=== PATIENT | female | born 1940 | race American Indian/Alaskan Native ===

== ENCOUNTER 2018-06-15 07:09 | Day surgery (SDC) | payer MEDICARE ==
[2018-06-15] MEDS ORDERED: ZOFRAN IV PRN (07:28)
[2018-06-15] MEDS ORDERED: DILAUDID IV PRN (07:28)
[2018-06-15] MEDS ORDERED: NACL 0.9% 1000 ML 1,000 ML IV SCH (08:00)
[2018-06-15] MEDS ORDERED: TYLENOL ONE (09:11)
--- NOTE | 2018-06-15 09:27 | Anesthesia Consultation ---
Anesthesia Consult and Med Hx Date of service: 06/15/18 - Airway Anesthetic Teeth Evaluation: Good ROM Head & Neck: Adequate Mental/Hyoid Distance: Adequate Mallampati Class: Class I Intubation Access Assessment: Good - Pulmonary Exam CTA: Yes - Cardiac Exam Cardiac Exam: RRR - Pre-Operative Health Status ASA Pre-Surgery Classification: ASA3 Proposed Anesthetic Plan: General (HTN, DM, Denies GERD, GA with LMA ok) - Pulmonary Hx Smoking: No Hx Sleep Apnea: (RADHA PRE SCREEN HIGH RISK.) - Cardiovascular System Hx Hypertension: Yes (X 20 YRS) - Central Nervous System Hx Back Pain: Yes (NECK AND BACK PAIN) - Hematic Hx Anemia: Yes
--- NOTE | 2018-06-15 09:27 | Anesthesia Day of Surgery ---
Anesthesia Day of Surgery - Day of Surgery Patient Examined: Yes Patient H&P Reviewed: Yes Patient is NPO: Yes
[2018-06-15 10:33] LABS: Hematocrit 33.5 % (30.3-42.9)
[2018-06-15] MEDS ORDERED: SUBLIMAZE ONE (11:26)
[2018-06-15] MEDS ORDERED: DIPRIVAN 10 MG/ML IV ONE (11:27)
[2018-06-15] MEDS ORDERED: ZOFRAN ONE (12:00)
[2018-06-15] MEDS ORDERED: XYLOCAINE MPF 2% ONE (12:00)
[2018-06-15] MEDS ORDERED: ANCEF/STERILE WATER 2 GM/20 ML IV NR (12:00)
[2018-06-15] MEDS ORDERED: WATER FOR IRRIG STERILE IR ONE (12:30)
[2018-06-15] MEDS ORDERED: LASIX ONE (12:48)
--- NOTE | 2018-06-15 12:53 | Post Operative Note ---
Date of procedure: 06/15/18 Pre-op diagnosis: pelvic mass hydro Post-op diagnosis: same Findings: strictures Procedure: cysto r ureteroscopy rpgs j stents biopsy Anesthesia: GETA Surgeon: DION BIRCH Estimated blood loss: minimal Pathology: list (periurethral) Specimen disposition: to lab Condition: stable Disposition: PACU
--- NOTE | 2018-06-15 12:54 | Discharge Summary ---
Short Stay Discharge Plan Activity: other (no straining ) Weight Bearing Status: Full Weight Bearing Diet: regular Wound: open to air Special Instructions: other (f/u 24 hrs to remove vag pack ) Durable Medical Equipment Needed Upon Discharge: other (stents and vag pack ) Follow up with: PRIMARY CARE, [Primary Care Provider] - 7 Days DION BIRCH MD [Staff Physician] - 06/16/18
[2018-06-15] MEDS ORDERED: ZEMURON IV ONE (13:00)
--- NOTE | 2018-06-15 13:14 | Operative Report ---
PREOPERATIVE DIAGNOSES: Pelvic cancer, pelvic mass, bilateral hydronephrosis. POSTOPERATIVE DIAGNOSES: Pelvic cancer, pelvic mass, bilateral hydronephrosis with ureteral strictures, left upper ureter, right lower ureter. PROCEDURE: Cystoscopy, bilateral stent changes, right ureteroscopy, periurethral biopsy. SURGEON: Bud Ward MD ANESTHESIA: General. FINDINGS: This is a woman with pelvic mass who came to me with bilateral stents that was within for quite a while. She did not go to follow up in our country. I do not have all her history. She now presents for stent exchange. DESCRIPTION OF PROCEDURE: The patient was brought to the operating room and placed on the operating table. Following induction of anesthesia, placed in lithotomy position, prepped and draped in usual sterile fashion. Urethra was well retracted. The vagina was very short with evidence of a mass and a fixed pelvis. We can barely torque, even an ureteroscope would not torque to get into the orifice that was the rigid ureteroscope. At this point, the right stent was brought out through the urethra and it should be noted the bladder neck was well elevated from this pelvic mass or just scar tissue. We placed a wire in the ureter and using a double lumen catheter, we placed a second wire. Low ureteroscopy revealed severe narrowing in the lower ureter very compressed. We then placed a stent on the right side. On the left side, we could not get a wire through the stent and there was evidence of upper ureteral narrowing stricture. Eventually with an open-ended we got the wire back up and did not want to do ureteroscopy to the upper ureter. It would look too fragile. We could even get a second wire in this small opening. Another 6-Welsh 26 was placed in the left side. The patient tolerated the procedure well. A small biopsy periurethral on the right side was taken. There was some bleeding, so we placed the Gelfoam and a pack which was absorbable, with a vaginal pack just to be sure there was no bleeding, just one biopsy was done. The patient tolerated the procedure well and brought to recovery in stable condition with an 18-S[place] catheter. JOB# [id number] REYES/LAVINIA
[2018-06-15 14:28] VITALS: BP 140/64
--- NOTE | 2018-06-15 15:26 | Fluoroscopy Report ---
FLUOROSCOPY RETROGRADE UROGRAPHY: HISTORY: Hydronephrosis. FINDINGS: Fluoroscopy was provided by radiology during retrograde urography by the urologist. 6 fluoroscopic images were captured. The images demonstrate bilateral ureteral stent exchange. Right ureteroscopy and bladder biopsy were performed per the operative notes. No ureteral stones were visualized. The final image demonstrates good placement of the ureteral stents and adequate drainage of both collecting systems. IMPRESSION: Bilateral ureteral stent exchange.
== END 2018-06-15 15:05 | disposition home or self-care (01) ==
LOC: OR 07:09
PROVIDERS: ATTEND Urology
DX: C76.3 Malignant neoplasm of pelvis (principal); N13.39 Other hydronephrosis; E11.9 Type 2 diabetes mellitus without complications; E78.00 Pure hypercholesterolemia, unspecified; I10 Essential (primary) hypertension; G47.33 Obstructive sleep apnea (adult) (pediatric); Z86.2 Personal history of diseases of the blood and blood-forming organs and certain disorders involving the immune mechanism; Z79.899 Other long term (current) drug therapy
CPT/HCPCS: 36415; 52204; 52332; 52351; 74420; 82962; 85014; 85018; 88305; A4217; C1758; C1769; C2617; J0690; J1940; J2405; J2704; J3010; J7030; Q9967

== ENCOUNTER 2021-05-02 11:06 | Day surgery (SDC) | payer MEDICARE ==
[2021-05-01 11:22] LABS: Hematocrit 27.9 % (30.3-42.9); Hemoglobin 9.4 gm/dl (10.1-14.3); Mean Corpuscular HGB Conc 34 % (30-34); Mean Corpuscular Volume 82 fl (79-97); Platelet Count 470 K/mm3 (140-440); Red Blood Count 3.42 M/mm3 (3.65-5.03); Red Cell Distribution Width 16.5 % (13.2-15.2)
[2021-05-01 11:40] LABS: Calcium 9.8 mg/dL (8.4-10.2)
[~2021-05-02 11:06] MED LIST: IOHEXOL 300 MG/ML 50ML IV ONE; LACTATED RINGERS 1,000 ML IV SCH; WATER FOR IRRIG STERILE 1,500 ML BOTTLE IR ONE; WATER FOR IRRIG STERILE 2000 ML IR ONE
--- NOTE | 2021-05-02 12:53 | Anesthesia Consultation ---
Anesthesia Consult and Med Hx Date of service: 05/02/21 - Airway Anesthetic Teeth Evaluation: Poor (multiple missing teeth; denies loose teeth) ROM Head & Neck: Adequate Mental/Hyoid Distance: Adequate Mallampati Class: Class II Intubation Access Assessment: Probably Good - Pre-Operative Health Status ASA Pre-Surgery Classification: ASA3 Proposed Anesthetic Plan: General - Pulmonary Hx Smoking: No Hx Respiratory Symptoms: No Hx Sleep Apnea: No (RADHA PRE SCREEN HIGH RISK.) - Cardiovascular System Hx Hypertension: Yes (took antihypertensives this morning) Hx Heart Attack/AMI: No Hx Percutaneous Transluminal Coronary Angioplasty (PTCA): No Hx Cardia Arrhythmia: No - Central Nervous System CVA: No Hx Back Pain: Yes (w/ neuropathy) - Endocrine Hx Renal Disease: Yes (CKD) Hx Liver Disease: No Hx Non-Insulin Dependent Diabetes: Yes Hx Thyroid Disease: No - Hematic Hx Anemia: Yes - Other Systems Hx Cancer: Yes (hx cervical cancer) - Additional Comments Anesthesia Medical History Comments: No hx anesthetic complications.
--- NOTE | 2021-05-02 12:53 | Anesthesia Day of Surgery ---
Anesthesia Day of Surgery - Day of Surgery Patient Examined: Yes Patient H&P Reviewed: Yes Patient is NPO: Yes
[2021-05-02] MEDS ORDERED: ACETAMINOPHEN 500 MG TAB PO SCH (13:30)
[2021-05-02] MEDS ORDERED: ONDANSETRON 4 MG/2 ML INJ IV PRN (13:30)
[2021-05-02] MEDS ORDERED: ceFAZolin/Water 2 GM/20 ML 2 GM/20 ML SYRINGE IV ONE (13:47)
[2021-05-02] MEDS ORDERED: ceFAZolin/Water 2 GM/20 ML 2 GM/20 ML SYRINGE IV NR (14:00)
[2021-05-02] MEDS ORDERED: INSULIN REGULAR, HUMAN 100 UNITS/1 ML ONE (14:10)
[2021-05-02] MEDS ORDERED: MIDAZOLAM 2 MG/2 ML INJ ONE (14:16)
[2021-05-02] MEDS ORDERED: propofoL 200 MG/20 ML VIAL IV ONE (14:16)
[2021-05-02] MEDS ORDERED: WATER FOR IRRIG STERILE 2000 ML IR ONE (14:37)
[2021-05-02] MEDS ORDERED: WATER FOR IRRIG STERILE 1,500 ML BOTTLE IR ONE (14:52)
[2021-05-02] MEDS ORDERED: IOHEXOL 300 MG/ML 50ML IV ONE (14:57)
[2021-05-02] MEDS ORDERED: ONDANSETRON 4 MG/2 ML INJ ONE (14:57)
--- NOTE | 2021-05-02 15:00 | Post Operative Note ---
Pre-op diagnosis: cervical cancer Post-op diagnosis: same Findings: necrosis pelvic mass Procedure: cysto cystogeram biop[sies Anesthesia: GETA Surgeon: DION BIRCH Estimated blood loss: minimal Pathology: list (bladder urethra vag) Specimen disposition: to lab Condition: stable Disposition: PACU
--- NOTE | 2021-05-02 15:01 | Discharge Summary ---
Short Stay Discharge Plan Activity: avoid flexion, other (no styrsining ) Weight Bearing Status: Full Weight Bearing Diet: regular Special Instructions: other (teach monreal care ) Durable Medical Equipment Needed Upon Discharge: other (monreal ) Follow up with: TREVOR RUBIO MD [Primary Care Provider] - 7 Days DION BIRCH MD [Staff Physician] - 7 Days
[2021-05-02] MEDS: fentaNYL 100 MCG/2 ML INJ IV PRN ×2 (15:33→15:50)
--- NOTE | 2021-05-02 15:36 | Operative Report ---
DATE OF SURGERY: 05/02/2021 PREOPERATIVE DIAGNOSES: Pelvic cancer, cervical cancer, invasive cancer, poorly compliant, previous stents which were removed. POSTOPERATIVE DIAGNOSES: Pelvic cancer, cervical cancer, invasive cancer, poorly compliant, previous stents which were removed. PROCEDURES: Cystoscopy, biopsies of necrotic tissue in the urethra, bladder masses with biopsy and fulguration and transvaginal biopsy. SURGEON: Dr. Ward. ANESTHESIA: General. FINDINGS: This is a woman who presents with a fixed pelvis. There is a large mass. Stents were removed. She has not been seen for many years. [place]. She has not had stents for quite some time. She has right hydronephrosis and a pelvic mass on exam. DESCRIPTION OF PROCEDURE: The patient was brought to the operating room and placed on the operating table. Following induction of anesthesia, placed in lithotomy position, prepped and draped in the usual sterile fashion. Bimanual exam showed a fixed pelvis. Cystoscopy showed a retracted urethra with necrosis throughout the urethra. Biopsies were obtained and tissue came out just on inserting the scope. Bladder had multiple bolus and inflammatory changes and masses, not papillary. Biopsy was obtained and fulgurated. There was no significant bleeding in the bladder or in the urethra. A Jackson was left and transvaginal biopsies were done of this fixed pelvic mass. The patient tolerated the procedure well and brought to recovery room. We placed a little Gelfoam plug vaginally to be sure there was no bleeding, brought to recovery in stable condition. No stents, no retrogrades were done. Cystogram showed a contracted bladder with high elevation from this mass. TID: [id number] RECEIPT: [id number] REYES/WINSOME
[2021-05-02 16:31] VITALS: BP 117/59
--- NOTE | 2021-05-02 16:44 | Post Anesthesia Evaluation ---
- Post Anesthesia Evaluation Patient Participated: Yes Airway Patent: Yes Stable Respiratory Function: Yes Nausea/Vomiting: No Temp > 96.8F: Yes Pain Manageable: Yes Adequeate Hydration: Yes Anesthesia Complications: No
--- NOTE | 2021-05-02 16:48 | Fluoroscopy Report ---
INTRAOPERATIVE FLUOROSCOPY: CYSTOGRAM INDICATION / CLINICAL INFORMATION: NECROTIC PELVIC MASS. TECHNIQUE: Intraoperative spot images were obtained during the procedure. FINDINGS: Images show cystogram See operative/procedure note by performing physician for full details. Fluoroscopy Time: 0.6 minutes. Fluoroscopy Images: 7. Signer Name: Joshua Ulloa MD Signed: 05/02/2021 4:44 PM Workstation Name: [id number]
== END 2021-05-02 17:00 | disposition home or self-care (01) ==
LOC: OR 11:06
PROVIDERS: ATTEND Urology
DX: C76.3 Malignant neoplasm of pelvis (principal); C53.9 Malignant neoplasm of cervix uteri, unspecified; Z20.822 Contact with and (suspected) exposure to COVID-19; N13.0 Hydronephrosis with ureteropelvic junction obstruction; N30.80 Other cystitis without hematuria; N89.8 Other specified noninflammatory disorders of vagina; I10 Essential (primary) hypertension; E78.00 Pure hypercholesterolemia, unspecified; M19.90 Unspecified osteoarthritis, unspecified site; E11.9 Type 2 diabetes mellitus without complications; F32.9 Major depressive disorder, single episode, unspecified; Z98.890 Other specified postprocedural states; Z88.8 Allergy status to other drugs, medicaments and biological substances; Z79.899 Other long term (current) drug therapy; Z98.41 Cataract extraction status, right eye; Z98.42 Cataract extraction status, left eye; Z86.2 Personal history of diseases of the blood and blood-forming organs and certain disorders involving the immune mechanism
CPT/HCPCS: 36415; 52204; 57100; 74430; 80048; 82962; 85027; 88305; A4217; C1758; C1769; J0690; J2250; J2405; J2704; J3010; J7120; Q9967; U0003; 88112; J1815